=== PATIENT | female | born 1965 | race Hispanic/Latino ===

== ENCOUNTER 2019-07-22 07:40 | Outpatient (CLI) | payer OTHER ==
[2019-07-22 10:30] LABS: Hemoglobin 13.4 g/dL (12.0-16.0); Mean Corpuscular HGB CONC 33.9 g/dL (32.0-36.0); Mean Corpuscular Volume 88.3 fL (78.0-98.0); Mean Platelet Volume 7.9 fL (7.4-10.4); Platelet Count 257 thou/uL (130-400); RBC Distribution Width 12.3 % (11.5-14.5); Red Blood Cell (RBC) Count 4.47 mill/uL (4.20-5.40); White Blood Cell (WBC) Count 6.6 thou/uL (4.8-10.8)
[2019-07-22 10:31] LABS: Bacteria/HPF None Seen HPF (None Seen); Bilirubin Negative (Negative); Blood, Urine Negative (Negative); Clarity Clear (Clear); Glucose, Urine (Dipstick) Normal (Negative); Leukocyte Negative Leu/uL (Negative); Nitrite Negative (Negative); Protein, Urine (Dipstick) Negative (Neg-Trace); RBC/HPF 0-3 HPF (0-3); Squamous Epithelial 0-3 HPF (0-3); Urobilinogen Normal mg/dL (Less than 2); WBC/HPF None Seen HPF (0-3)
[2019-07-22 10:48] LABS: Anion Gap 11 mmol/L (10-20); BUN (Urea Nitrogen) 17 mg/dL (9.8-20.1); Calc. Creatinine Clearance 0 mL/min (70-130); Calcium 9.6 mg/dL (7.8-10.44); Carbon Dioxide 25 mmol/L (22-29); Chloride 105 mmol/L (98-107); Estimated GFR-MDRD 76; Glucose 95 mg/dL (70-105); Potassium 4.2 mmol/L (3.5-5.1); Sodium 137 mmol/L (136-145)
--- NOTE | 2019-07-23 08:30 | EKG ---
Test Reason : Blood Pressure : / mmHG Vent. Rate : 070 BPM Atrial Rate : 070 BPM P-R Int : 132 ms QRS Dur : 082 ms QT Int : 402 ms P-R-T Axes : 043 067 001 degrees QTc Int : 434 ms Normal sinus rhythm Non specific T wave changes lead 3, AVF No previous ECGs available Confirmed by DR. Alfredito GARCIA ([id number]) on 07/23/2019 8:29:51 AM Referred By: BLAIR Confirmed By:DR. Alfredito GARCIA
== END 2019-07-22 07:41 | disposition home or self-care (01) ==
LOC: LABBT 07:40
PROVIDERS: ATTEND Urology
DX: Z01.818 Encounter for other preprocedural examination (principal); N81.11 Cystocele, midline; N39.3 Stress incontinence (female) (male)
CPT/HCPCS: 80048; 81001; 85027; 87086; 93005; 93010

== ENCOUNTER 2019-07-28 05:47 | Observation (INO) | payer OTHER ==
[2019-07-22 08:55] VITALS: BMI 32.5
[2019-07-28] MEDS ORDERED: Sodium Chloride 0.9% 100 ML ONE (06:17)
[2019-07-28] MEDS ORDERED: Ampicillin 2 GM VIAL ONE (06:17)
[2019-07-28] MEDS ORDERED: Gentamicin Sulfate 125 MG in Sodium Chloride 0.9% 100 ML IVPB SCH (06:30)
[2019-07-28] MEDS ORDERED: Bupivacaine 0.25% HCL 30 ML VIAL ONE (06:42)
[2019-07-28] MEDS ORDERED: Fentanyl 250 MCG/5 ML VIAL ONE (06:59)
[2019-07-28] MEDS ORDERED: Mag-Al 1200 mg/1200 mg/30 ML UDCUP PO PRN (08:55)
[2019-07-28] MEDS ORDERED: Zolpidem Tartrate 5 MG TAB PO PRN (08:55)
[2019-07-28] MEDS ORDERED: hydrALAZINE 20 MG/ML VIAL SLOW IVP PRN (08:55)
[2019-07-28] MEDS ORDERED: Ondansetron PF 4 MG/2 ML Vial IVP PRN (08:55)
[2019-07-28] MEDS ORDERED: diphenhydrAMINE 50 MG/ML VIAL IVP PRN (08:55)
[2019-07-28] MEDS ORDERED: Morphine 4 MG/ML VIAL SLOW IVP PRN (08:55)
[2019-07-28] MEDS ORDERED: Promethazine HCl 25 MG/ML VIAL IVPB PRN (08:55)
[2019-07-28] MEDS ORDERED: HYDROcodone/Acetaminophen 5/325 mg Tablet PO PRN (08:55)
[2019-07-28] MEDS ORDERED: Promethazine HCl 25 MG/ML VIAL IM PRN (09:00)
[2019-07-28] MEDS ORDERED: Ondansetron HCl/PF 4 MG/2 ML Vial IVP PRN (09:00)
[2019-07-28] MEDS ORDERED: Promethazine HCl 25 MG/ML VIAL SLOW IVP PRN (09:00)
[2019-07-28] MEDS ORDERED: Meperidine HCl/PF 25 MG/ML VIAL SLOW IVP PRN (09:00)
[2019-07-28] MEDS ORDERED: Promethazine HCl 12.5 MG in Sodium Chloride 0.9% 50 ML IVPB PRN (09:25)
[2019-07-28] MEDS ORDERED: Ondansetron PF 4 MG/2 ML Vial ONE (09:48)
[2019-07-28] MEDS ORDERED: EPHEDRINE 25 MG/5 ML SYRINGE ONE (09:48)
[2019-07-28] MEDS ORDERED: Lidocaine 1% PF 5 ML VIAL ONE (09:48)
[2019-07-28] MEDS ORDERED: PROPOFOL 200 MG/20 ML VIAL ONE (09:48)
[2019-07-28] MEDS ORDERED: Dexamethasone 20 MG/5 ML VIAL ONE (09:48)
[2019-07-28] MEDS ORDERED: Rocuronium Bromide 10 MG/ML (10ML VIAL) ONE (09:48)
[2019-07-28] MEDS: Sodium Chloride 0.9% 1,000 ML IV SCH ×2 (11:03→16:23)
[2019-07-28] MEDS: Docusate 100 MG CAP PO SCH ×2 (11:03→20:43)
[2019-07-28] MEDS: Famotidine/PF 20 mg/2ml Vial SLOW IVP SCH ×2 (11:03→20:43)
[2019-07-28] MEDS: Ketorolac Tromethamine 30 MG/ML VIAL IVP SCH ×2 (11:05→18:15)
[2019-07-28] MEDS: Hyoscyamine Sulfate SL 0.125 mg Tablet SL PRN ×2 (11:06→18:16)
--- NOTE | 2019-07-28 16:34 | OP ---
DATE OF PROCEDURE: 07/28/2019 PREOPERATIVE DIAGNOSES: Stress urinary incontinence, midline cystocele. POSTOPERATIVE DIAGNOSES: Stress urinary incontinence, midline cystocele. PROCEDURES PERFORMED: Cystocele repair, placement of Obtryx II midurethral sling. ANESTHESIA: General. COMPLICATIONS: None. BLOOD LOSS: 400 mL. SPECIMEN: None. DESCRIPTION OF PROCEDURE: After informed consent, the patient was taken to the operating room and transferred to the table under her own power. Anesthesia was established. A time-out was performed showing the correct patient, site, and procedure. Preoperative antibiotics were administered. She was prepped and draped in the lithotomy position. I began by placing a weighted speculum and a 16-[place] Lee catheter draining the bladder completely. I then instilled 0.25% Marcaine on the vaginal mucosa beginning at the midurethra and extending along the midline of the anterior aspect of the vagina back towards the apex. I did note that she has good apical support with a moderate cystocele. The midline of the vagina from the midurethra back towards the apex was incised and dissected laterally. The bladder was dissected away along the lateral edges with combination of sharp and blunt dissection exposing the vesicovaginal space. The periurethral space was dissected on both sides. I then identified the area below the adductor longus tendon on both sides around the level of the clitoris. 10 mL of 0.25% Marcaine was instilled from that location down towards the periurethral space on both sides. A stab incision was made, and then the Halo trocars passed, first on the patient's left and then on the right with the tip coming out near the midurethra. The sling was then affixed and brought back through the stab incisions thereby positioning the sling. The catheter was then removed. Rigid cystoscopy was performed noting no bladder injuries or evidence of mesh erosion in the bladder or urethra. Both ureters appeared normal. The catheter was then replaced, and the sling was tensioned over a marking pen cap. I noted good positioning of the sling and made sure to tension it properly after removing the marking pen cap. A series of 2-0 Vicryl interrupted sutures were then placed sequentially along the lateral folds of the vesicovaginal space, brought together, while simultaneously bringing the lateral vaginal tissues together. The excess vaginal tissue was then trimmed. The vagina was then closed with a running horizontal mattress 2-0 chromic suture. The stab incisions were dressed with Dermabond. Vaginal packing was then placed, and the Lee catheter was connected to bag drainage. At the end of the procedure, all sponges, instruments, and sharps were counted and correct. Lee catheter was draining clear urine. The patient was then awoken from anesthesia, transferred back to her hospital bed, and taken to PACU in stable condition, where she will be admitted overnight. Job ID: [id number]
[2019-07-29] MEDS: Ketorolac Tromethamine 30 MG/ML VIAL IVP SCH ×2 (00:06→06:48)
[2019-07-29] MEDS: Sodium Chloride 0.9% 1,000 ML IV SCH (00:10)
[2019-07-29 05:31] VITALS: TEMP 98.1
[2019-07-29 08:01] VITALS: BP 100/63
[2019-07-29] MEDS: Docusate 100 MG CAP PO SCH (09:03)
[2019-07-29] MEDS: Famotidine/PF 20 mg/2ml Vial SLOW IVP SCH (09:03)
[2019-07-29] MEDS: Hyoscyamine Sulfate SL 0.125 mg Tablet SL PRN (09:04)
--- NOTE | 2019-07-29 11:41 | DIS ---
DATE OF ADMISSION: 07/28/2019 DATE OF DISCHARGE: 07/29/2019 DISCHARGE DIAGNOSES: Stress incontinence, cystocele. PROCEDURES PERFORMED: Midurethral sling, cystocele repair. HOSPITAL COURSE: The patient underwent an uncomplicated cystocele repair with placement of Obtryx II midurethral sling. She was managed overnight with vaginal packing and Lee catheter. The catheter was removed early in the morning and she was able to void shortly thereafter. The packing was removed on morning rounds. Minimal blood on the packing. She is not having any pain, chest pains, nausea, vomiting, or fevers on postop day 1 and is ready for discharge home. DISCHARGE PLAN: Follow up 3 weeks with postvoid residual. DISCHARGE MEDICATIONS: Include; 1. Bactrim. 2. [place]. 3. Naproxen. 4. Docusate. DISCHARGE CONDITION: Stable. Job ID: [id number]
== END 2019-07-29 10:03 | disposition home or self-care (01) ==
LOC: SDC 05:47 → SURG B 07:30
PROVIDERS: ADMIT Urology; ATTEND Urology
PROC: 0JQC0ZZ Repair Pelvic Region Subcutaneous Tissue and Fascia, Open Approach (ICD-10-PCS; principal; 2019-07-28)
PROC: 0TSD0ZZ Reposition Urethra, Open Approach (ICD-10-PCS; 2019-07-28)
DX: N81.11 Cystocele, midline (principal); N39.3 Stress incontinence (female) (male); Z79.899 Other long term (current) drug therapy; Z98.890 Other specified postprocedural states
CPT/HCPCS: 96361; 96374; 96375; 96376; C1781; G0378; J0290; J1100; J1580; J1885; J2001; J2405; J2704; J3010; J3490; S0020; S0028